=== PATIENT | female | born 1970 | race Caucasian/White ===

== ENCOUNTER 2016-12-29 02:00 | Inpatient (IN) | payer OTHER ==
[~2016-12-29] VITALS: Ht 162.6 cm; Wt 100.7 kg
[~2016-12-29 02:00] MED LIST: FUROSEMIDE20 M1 PO; METHIMAZOLE5 M1 PO
--- NOTE | 2016-12-29 13:49 | ULTRASOUND CBW REPORT ---
EXAMINATION: MM GUIDED NEEDLE LOCALIZATION BREAST, LEFT. US GUIDED NEEDLE LOCALIZATION BREAST, LEFT. US BREAST DIAGNOSTIC ULTRASOUND, LEFT MM BREAST DIGITAL DIAGNOSTIC MAMMOGRAM, LEFT. CLINICAL INFORMATION: Needle localization of biopsy-proven metastatic lymph node in the left axilla. COMPARISON: Ultrasound-guided biopsy and post procedure mammogram dated 04/17/2016. Breast MRI scan dated 09/08/2016. TECHNIQUE/FINDINGS: An ultrasound of the left axilla and axillary tail was performed with real-time assessment by the reading radiologist. No images were specifically taken. However, on real-time scanning, a few scattered axillary lymph nodes were visualized without discrete cortical thinning. The index lymph node with the biopsy clip could not be identified. The patient was therefore brought into the mammography suite and imaging of the left axilla/axillary tail was performed. However, despite multiple tries in different positions, the desired lymph node with associated biopsy clip could not be seen. Given nonvisualization of the index lymph node in the left axilla, a needle localization study could not be performed. IMPRESSION: Unsuccessful needle localization of the left breast with mammographic guidance or sonographic guidance. These findings were discussed with Dr. Marie. ASSESSMENT: ACR BI-RADS 6: Known breast cancer. RECOMMENDATIONS: Would recommend obtaining specimen radiographs of the excised lymph nodes to document that the index lymph node has also been resected. The patient was notified of the findings and recommendations at the time of the exam.
--- NOTE | 2016-12-29 14:03 | Operative Report ---
Operative/Inv Procedure Report Surgery Date: 12/29/16 Name of Procedure: Bilateral mastectomy, left axillary node biopsy, left sentinel node biopsy Pre-Operative Diagnosis: Left breast cancer, status post neoadjuvant chemotherapy Post-Operative Diagnosis: Same Estimated Blood Loss: less than 50ml Surgeon/Aerophysics Engineer: HA ARMSTRONG MD Anesthesia: general endotracheal tube Specimens: Right breast, left breast, sutures marked medial margin, left axillary lymph node Operative/Procedure Note Note: Patient status post treatment with neoadjuvant chemotherapy for locally advanced , node positive left breast cancer. She had evidence of an excellent radiologic response. She is brought to the operating room for bilateral mastectomies. Attempt was made at wire localization of an axillary lymph node however the clip was not able to be definitively visualized. Preoperative lymphoscintigraphy was performed. She is brought to the operating room on 12/29/2016 placed supine on the table, preoperative Ancef was given and bilateral breast reprepped and draped in sterile fashion using ChloraPrep. Blue, 3 mL diluted with 2 mL of saline was injected in the left retroareolar fashion. Right breast was approached first. Curvilinear incisions were made above and below the nipple areolar complex. Flaps are created superiorly to level clavicle, inferiorly to the superior border the rectus sheath, laterally to the axilla and medially to the sternum. From the pectoralis fashion using electrocautery. Hemostasis was achieved using electrocautery. The superior skin flap was thick and therefore additional tissue was taken to thin the superior flap. This was sent with the mastectomy specimen. The left breast was then approached. Skin flaps are created in a similar fashion and the nipple areola complex was excised with the specimen. Specimen was removed and marked for division margin map. Then approached. There was a single hot lymph node identified and this was excised. Intraoperative x-ray confirmed the presence of the clip in the specimen. Therefore both the sentinel lymph node and positive lymph node were removed and may in fact be the same lymph node. There were no other palpable lymph nodes in the axilla. This is was adequate. The remainder the procedure be dictated by Dr. Heard.
[2016-12-29] MEDS ORDERED: DIOVAN320 M1 PO (15:20)
[2016-12-29] MEDS ORDERED: LEVOTHYROXINE75 MCG PO (15:20)
[2016-12-29] MEDS ORDERED: ATORVASTATIN CA80 M1 PO (15:21)
--- NOTE | 2016-12-29 16:56 | MAMMOGRAPHY REPORT ---
EXAMINATION: MM NEEDLE LOCALIZATION SPECIMEN FROM THE BREAST, LEFT CLINICAL INDICATION: Excision of left axillary lymph node, biopsy-proven to represent a metastatic lymph node. COMPARISON: Ultrasound-guided biopsy dated 04/17/2016. TECHNIQUE: Single specimen radiograph was obtained. FINDINGS: The radiograph of the excised surgical specimen shows a 0.6 cm diameter nodular density with adjacent wing shaped biopsy clip. IMPRESSION: Satisfactory excision of the index lymph node, previously biopsied and found to represent a metastatic lymph node. These findings were communicated to the surgeon in the OR at the time of specimen radiography.
--- NOTE | 2016-12-29 17:24 | Admission Core Measures ---
Admission Lab Results I reviewed the following labs: Laboratory Tests 12/29 0838 Urines Urine Test NEGATIVE Admission Meds I reviewed the following Meds: Current Medications Sig/Marry Start time Last Medication Dose Stop Time Status Admin Cefazolin Sodium 2,000 MG ONCE 12/29 0000 NR (Kefzol-Ancef Inj) 12/29 2359 Acute Coronary Syndrome Inclusion Criteria ACS Diagnosis No Inpatient Core Measures LDL Reminder: If No, please order W/I first 24hr of stay Congestive Heart Failure Inclusion Criteria CHF Diagnosis No Cerebrovascular accident Inclusion Criteria CVA/TIA Diagnosis No Inpatient Core Measures Bedside Swallow Eval Reminder: If BSE failed, place ST order Antithrombotic Reminder: Order Antithrombotic Medication by end of day 2 Antithrombotic Reminder: Document Reason Antithrombotic Not ordered by end of day 2 AFIB/Flutter Reminder: If Present, add to problem list AFIB/Flutter Reminder: Order Anticoag Medication for pts with AFIB/Flutter Atherosclerosis Reminder: If Present, add to problem list LDL Reminder: If No, please order W/I first 24hr of stay PT Order Reminder: If No, please order Venous thromboembolism Inpatient Core Measures VTE Risk Factors: Age > 40, Cancer/chemo/oth therapy, Surgery No [facility] VTE prophylaxis d/t No contraindications No VTE Pharm Prophylaxis d/t No contraindications Inclusion Criteria - Per Current guidelines, there needs to be overlap - treatment for the first 5 days of Warfarin therapy. - Parenteral Anticoagulation (IV or SC) needs to be - given along with Warfarin therapy. VTE Diagnosis No VTE Type NONE VTE Confirmed by (Test) NONE Problem List As ranked by this Provider includes Assessment & Plan 1. S/P mastectomy, bilateral 2. Breast cancer HOME MEDS Home Med List Atorvastatin Calcium 80 MG TABLET 1 TAB PO DAILY CHOL (Reported) Furosemide 20 MG TABLET 1 TAB PO DAILY EDEMA (Reported) Levothyroxine Sodium 75 MCG TABLET 1 TAB PO DAILY THYROID (Reported) Methimazole 5 MG TABLET 1 TAB PO DAILY ? (Reported) Valsartan (Diovan) 320 MG TABLET 1 TAB PO DAILY BP (Reported)
[2016-12-29 18:15] VITALS: BP 148/80
--- NOTE | 2016-12-29 18:48 | Operative Report ---
Operative/Inv Procedure Report Surgery Date: 12/29/16 Name of Procedure: Bilateral breast reconstruction with tissue expanders with serratus fascia slings Pre-Operative Diagnosis: Left breast cancer Post-Operative Diagnosis: Acquired absence of breasts Estimated Blood Loss: less than 50ml Surgeon/Waiter/Waitress Cabin Class: Julián Heard MD Anesthesia: general endotracheal tube Monitors: NA IV Fluids: 3.2 L Crystalloids Implants: [place] CPX 4 Tissue Expanders 450 cc Left: [id number], [id number], [id number] Right: [id number], [id number], SN: [id number] Urine Output: NA Drains: 4 ROSEMARIE drains Specimens: None Microbiology: NA Tourniquet: NA Complications: None Condition: Stable Operative Indication: 46 yo female s/p neoadjuvant chemotherapy for locally advanced, node positive left breast cancer for bilateral mastectomies, breast reconstruction with tissue expanders. The procedure, risks, benefits, alternatives were discussed with patient and [id number]. The risks discussed but not limited included bleeding, infection, hematoma, seroma, pain, wound dehiscence, capsular contracture, asymmetry, and scarring. Knowing these risks the patient agreed to the procedure. Operative/Procedure Note Note: The patient was taken to the operating room and placed in supine position. SCD's placed on the lower extremity. Antibiotics given. General anesthesia administered. Breasts with anterior chest wall prepped and draped in sterile fashion. Patient underwent bilateral mastectomies performed by Dr. Marie. Separate dictation done. Upon completion of the right mastectomy, the breast pocket was inspected. Skin flaps examined and were noted to be with uniform thickness and with good hemostasis. Pectoralis major muscle was then elevated in the superior, medial, and inferior directions to the preoperative markings. This was performed using blunt and cautery dissection technique assisted with a lighted retractor. These pectoralis major muscle origins were completely left intact. Attention then placed towards the lateral chest wall with serratus anterior facia elevated as a lateral sling. Pocket was irrigated with diluted betadine solution followed by triple antibiotics (ancef, gentamicin, bacitracin). Attention was then turned to the left breast pocket. Skin flaps examined and were noted to be with uniform thickness and with good hemostasis. Pectoralis major muscle was then elevated in the superior, medial, and inferior directions to the preoperative markings. This was performed using blunt and cautery dissection technique assisted with a lighted retractor. These pectoralis major muscle origins were completely left intact. Attention then placed towards the lateral chest wall with serratus anterior facia elevated as a lateral sling. Pocket was irrigated with diluted betadine solution followed by triple antibiotics (ancef, gentamicin, bacitracin). Breast specimens weighed left: 822 grams, right: 844 grams. [place] CPX 4 450 cc tissue expanders were selected. Anterior chest wall prepped again. Sterile gloves changed. Left tissue manager lvn [id number], LOT:[id number], SN: [id number] was placed within the subpectoral pocket. The lateral edge of the pectoralis muscle was reapproximated to the serratus fascia sling with a 3-0 Vicryl . Two ROSEMARIE drains was placed through a separate stab incision at the anterior lateral inframammary fold and anchored to the skin using 3-0 nylon suture. Closure of the dermal layer then subsequently performed using interrupted 3-0 Vicryl suture. Skin closed using running 4-0 monocryl subcuticular suture. Attention then placed on the right breast pocket. Right tissue manager lvn REF:[id number], LOT: [id number], SN:[id number] was placed within the subpectoral pocket. The lateral edge of the pectoralis muscle was reapproximated to the serratus fascia sling with a 3-0 Vicryl . Two ROSEMAREI drains was placed through a separate stab incision at the anterior lateral inframammary fold and anchored to the skin using 3-0 nylon suture. Closure of the dermal layer then subsequently performed using interrupted 3-0 Vicryl suture. Skin closed using running 4-0 monocryl subcuticular suture. 100 cc of normal saline was injected into each tissue manager lvn. Mastectomy flaps appeared to be without congestion. Dermabond, telfa, tegaderm applied to surgical sites. Biopatch placed around all drain sites with Tegaderm. Counts were correct. The patient tolerated the procedure, was extubated, and returned to the recovery room in stable condition. Findings: [place] CPX 4 Tissue Expanders 450 cc Left: [id number], LOT:[id number], [id number] Right: [id number], LOT:[id number], SN: [id number] Discharge Disposition: PACU Additional Comments: NA
[2016-12-29 20:20] VITALS: BP 122/84
--- NOTE | 2016-12-29 20:45 | PN- General Surgery ---
Subjective Subjective: POST OP CHECK S/P BL mastectomy/recon c/o chest wall pain at incisions, no sob/cp, no n/v, lynne sips of clears, +void postop Objective Vital Signs and I&Os Vital Signs Date Time Temp Pulse Resp B/P B/P Pulse O2 O2 Flow FiO2 Mean Ox Delivery Rate 12/29 2008 Nasal 2.0L Cannula SBP 130s, HR 80 +void postop JPx4: all <25cc, serosang Physical Exam: GEN: NAD CARD: S1S2 RRR PULM: no audible wheeze ABD: soft nt EXT: calves soft nt bl INCISIONS: bl breast incisions with c/d/i drsgs, no eccymosis, no erythema, no drainage, JPx4 minimal serosang in bulb Assessment/Plan Assessment/Plan POD0 sp bl mastectomy, bl recon w tissue expanders, postop pain, otherwise stable. PLAN: PRN narc pain meds ATC toradol, tylenol, valium Ancef postop- ?need abx for duration of JPs aat to reg diet DVT ppx home meds Core Measures/Miscellaneous Venous Thromboembolism VTE Risk Factors: Age > 40, Cancer/chemo/oth therapy, Surgery VTE Contraindications: No Contraindications VTE Diagnosis: No VTE Type: NONE VTE Confirmed by (Test): NONE Beta Gretchen Is Beta Gretchen a Home Med? No Antibiotics Is Patient on Antibiotics? Yes
[2016-12-30] VITALS (7 sets, daily range): BP systolic 104–150; BP diastolic 62–100
--- NOTE | 2016-12-30 07:48 | PN- General Surgery ---
Subjective Subjective: complains of incisional pain Objective Vital Signs and I&Os Vital Signs Date Time Temp Pulse Resp B/P B/P Pulse O2 O2 Flow FiO2 Mean Ox Delivery Rate 12/30 0600 Nasal 2.0L Cannula 12/30 0459 98.4 77 18 104/74 97 Nasal Cannula 12/30 0400 97 Nasal 2.0L Cannula 12/30 0200 Nasal 2.0L Cannula 12/30 0117 98.0 76 16 110/70 98 Nasal Cannula 12/30 0000 Nasal 2.0L Cannula 12/29 2200 97 Nasal 2.0L Cannula 12/30 2019 97.6 80 16 122/84 98 Nasal 2.0L Cannula 12/29 2008 Nasal 2.0L Cannula 12/29 182 97 Nasal 2.0L Cannula 12/29 182 97 Nasal 2.0L Cannula 12/29 181 97.7 96 16 148/80 97 Nasal 2.0L Cannula Intake & Output 12/30 0800 12/30 0000 12/29 1600 12/29 0800 12/29 0000 12/28 1600 Intake Total 950 Output Total 1140 Balance -190 Intake, IV 250 Intake, Oral 700 Number 0 Bowel Movements Output, 140 Drainage Output, Urine 1000 Patient 222 lb Weight Weight Reported by Patient Measurement Method Physical Exam: No hematoma, dressing DCDI Assessment/Plan Assessment/Plan Patient complains of incisional pain. Will add long acting narcotic and add valium for muscle spasm. Out of bed. Core Measures/Miscellaneous Venous Thromboembolism VTE Risk Factors: Age > 40, Cancer/chemo/oth therapy, Surgery VTE Contraindications: No Contraindications VTE Diagnosis: No VTE Type: NONE VTE Confirmed by (Test): NONE Beta Gretchen Is Beta Gretchen a Home Med? No Antibiotics Is Patient on Antibiotics? Yes
[2016-12-30 08:53] LABS: ABSOLUTE BASOPHIL COUNT 0 /CUMM (0.0-0.2); ABSOLUTE EOSINOPHIL COUNT 0 /CUMM (0.0-0.7); ABSOLUTE GRANULOCYTE CT 4.1 /CUMM (1.4-6.5); ABSOLUTE LYMPH COUNT 2.1 /CUMM (1.2-3.4); ABSOLUTE MONOCYTE COUNT 0.5 /CUMM (0.10-0.60); BASOPHIL % 0.3 % (0.0-2.0); EOSINOPHIL % 0.2 % (0-5); HEMATOCRIT 26.6 % (37-47); MEAN CORPUSCULAR HGB 31.9 PG (27.0-31.0); MEAN CORPUSCULAR HGB CONC 32.8 G/DL (33.0-37.0); MEAN CORPUSCULAR VOLUME 97.2 FL (81.0-99.0); MEAN PLATELET VOLUME 8.6 FL (7.4-10.4); PLATELET COUNT 145 /CUMM (130-400); RBC DISTRIBUTION WIDTH 17.4 % (11.5-14.5); RED BLOOD CELL CT 2.73 /CUMM (4.20-5.40); WHITE BLOOD CELL COUNT 6.7 /CUMM (4.8-10.8)
--- NOTE | 2016-12-30 11:49 | PN- Plastic Surgery ---
Subjective Subjective: Patient c/o mild pain at the surgical site Review of Systems Musculoskeletal: Reports: muscle pain. Objective Vital Signs and I&Os Vital Signs Date Time Temp Pulse Resp B/P B/P Pulse O2 O2 Flow FiO2 Mean Ox Delivery Rate 12/30 1015 93 120/64 12/30 1000 95 Nasal 2.0L Cannula 12/30 1000 98.7 93 18 120/64 95 Nasal 2.0L Cannula 12/30 0800 Nasal 2.0L Cannula 12/30 0800 94 Nasal 2.0L Cannula 12/30 0800 98.2 75 20 150/100 98 Nasal 2.0L Cannula 12/30 0600 Nasal 2.0L Cannula 12/30 0459 98.4 77 18 104/74 97 Nasal Cannula 12/30 0400 97 Nasal 2.0L Cannula 12/30 0200 Nasal 2.0L Cannula 12/30 0117 98.0 76 16 110/70 98 Nasal Cannula 12/30 0000 Nasal 2.0L Cannula 12/29 2200 97 Nasal 2.0L Cannula 12/30 2019 97.6 80 16 122/84 98 Nasal 2.0L Cannula 12/29 2008 Nasal 2.0L Cannula 12/29 182 97 Nasal 2.0L Cannula 12/29 1820 97 Nasal 2.0L Cannula 12/29 181 97.7 96 16 148/80 97 Nasal 2.0L Cannula Intake & Output 12/30 1600 12/30 0800 12/30 0000 12/29 1600 12/29 0800 12/29 0000 Intake Total 875 950 Output Total 155 1140 Balance 720 -190 Intake, IV 775 250 Intake, Oral 100 700 Number 0 Bowel Movements Output, 155 140 Drainage Output, Urine 1000 Patient 222 lb Weight Weight Reported by Patient Measurement Method Physical Exam Breasts: Anterior chest wall=dressing clean and dry, mild incisional tenderness Assessment/Plan Assessment/Plan 46 F s/p bilateral mastectomies, breast reconstruction with tissue expanders -Regular diet -OOB>ambulate -Surgical bra (XL) when ambulating -PO antibioitcs, Flexeril PRN muscle spasms -No heavy lifting -Bath, no shower -Drain management -F/U 1 week after dischargfe Core Measures/Miscellaneous Venous Thromboembolism VTE Risk Factors: Age > 40, Cancer/chemo/oth therapy, Surgery VTE Contraindications: No Contraindications VTE Diagnosis: No VTE Type: NONE VTE Confirmed by (Test): NONE Beta Gretchen Is Beta Gretchen a Home Med? No Antibiotics Is Patient on Antibiotics? Yes Attending MD Review Statement Attending Statement Attending MD Statement: discuss w/resident/PA/COLLETER, discussed w/nursing
--- NOTE | 2016-12-30 22:54 | Patient Discharge Instructions ---
Discharge Instructions General Discharge Information You were seen/treated for: left breast cancer You had these procedures: bilateral breast mastectomy bilateral breast reconstruction with tissue expanders and serratus fascia slings Watch for these problems: temp>101, increased wound drainage, increased drain output, change in color of drain output Other wound care: keep wounds clean and dry with daily dry sterile dressing changes Special Instructions: -OOB>ambulate -Surgical bra (XL) when ambulating -by mouth antibioitcs, Flexeril PRN muscle spasms -No heavy lifting -Drain management Diet Continue normal diet: Yes Activity Activity Limited to: Weight bear as tolerated Other activity limits: no heavy lifting, no strenuous activity Acute Coronary Syndrome Inclusion Criteria At DC or during hospital stay patient has or had the following: ACS DIAGNOSIS No Discharge Core Measures Meds if any: Prescribed or Continued at Discharge Meds if any: NOT Prescribed or Continued at Discharge Congestive Heart Failure Inclusion Criteria At DC or during hospital stay patient has or had the following: CHF DIAGNOSIS No Discharge Core Measures Meds if any: Prescribed or Continued at Discharge Meds if any: NOT Prescribed or Continued at Discharge Cerebrovascular accident Inclusion Criteria At DC or during hospital stay patient has or had the following: CVA/TIA Diagnosis No Discharge Core Measures Meds if any: Prescribed or Continued at Discharge Meds if any: NOT Prescribed or Continued at Discharge Venous thromboembolism Inclusion Criteria VTE Diagnosis No VTE Type NONE VTE Confirmed by (Test) NONE Discharge Core Measures - Per Current guidelines, there needs to be overlap - treatment for the first 5 days of Warfarin therapy. - If discharged on Warfarin prior to 5 days of - overlap therapy, the patient will need to be - assessed for post discharge needs including - *Post discharge parental anticoagulation - *Warfarin and/or parental anticoagulation education - *Follow up date to check INR post discharge At least 5 days overlap therapy as Inpatient No Meds if any: Prescribed or Continued at Discharge Note: Overlap Therapy is Warfarin and Anticoagulant Meds if any: NOT Prescribed or Continued at Discharge
[2016-12-30] MEDS ORDERED: KEFLEX500 M1 PO (23:00)
[2016-12-30] MEDS ORDERED: VALIUM5 M2 PO (23:00)
[2016-12-30] MEDS ORDERED: MS CONTIN100 MG PO (23:00)
[2016-12-30] MEDS ORDERED: ROXICODONE15 M1 PO (23:00)
[2016-12-31 00:05] VITALS: BP 105/49
[2016-12-31 04:00] VITALS: BP 118/70
--- NOTE | 2016-12-31 07:52 | PN- General Surgery ---
Subjective Subjective: The patient was seen this morning postoperatively day #2. She still complains of pain predominantly on the right side however she reports the current pain regiment is much better than the day prior. She has no complaints at the current time and denies any true chest pain or difficulty breathing. Objective Vital Signs and I&Os Vital Signs Date Time Temp Pulse Resp B/P B/P Pulse O2 O2 Flow FiO2 Mean Ox Delivery Rate 12/31 0600 98 Nasal 2.0L Cannula 12/31 0400 99.0 84 16 118/70 97 Nasal 2.0L Cannula 12/31 0400 97 Nasal 2.0L Cannula 12/31 0005 99.0 87 18 105/49 94 Room Air 12/31 0000 94 Room Air 12/30 2200 94 Room Air 12/30 2000 98.2 81 18 112/62 95 Room Air 12/30 2000 95 Room Air 12/30 1800 95 Room Air 12/30 1624 98.3 81 20 132/74 95 12/30 1600 95 Room Air 12/30 1400 94 Room Air 12/30 1200 98.4 88 18 130/68 95 Room Air 12/30 1200 95 Room Air 12/30 1015 93 120/64 / 1000 95 Nasal 2.0L Cannula 12/30 1000 98.7 93 18 120/64 95 Nasal 2.0L Cannula 12/30 0800 Nasal 2.0L Cannula 12/30 0800 94 Nasal 2.0L Cannula 12/30 0800 98.2 75 20 150/100 98 Nasal 2.0L Cannula Intake & Output 12/31 0800 /14 0000 12/30 1600 /13 0800 12/30 0000 12/29 1600 Intake Total 1320 1210 1801 875 950 Output Total 225 180 736 227 3882 Balance 1095 1030 1586 720 -190 Intake, IV 600 650 721 775 250 Intake, Oral 074 358 9649 100 700 Number 0 0 Bowel Movements Output, 225 180 215 155 140 Drainage Output, Urine 1000 Patient 222 lb Weight Weight Reported by Patient Measurement Method Physical Exam: Gen.: Alert and in obvious distress Skin: Warm and dry Chest: With surgical bra and dressings are clean, dry, and intact. No signs of significant hematoma and overlying skin tissue appears viable and noncongested. Bilateral JPs are in place and holding suction with serosanguineous drainage in the bulb's Cardiac: S1-S2 regular Pulmonary: Bilateral breath sounds are equal and decreased at bases Extremities: Bilateral lower extremities are warm without calf tenderness. Assessment/Plan Assessment/Plan Assessment: 46-year-old female status post bilateral mastectomy with immediate reconstructive surgery postoperative day #2. The patient is progressing as expected and her pain is more adequately controlled the day prior. Plan: Hep-Lock IV fluids Continue current pain regiment Out of bed Continue antibiotics and change to by mouth antibiotics upon discharge Keep JPs to self suction Strict I's and O's Incentive spirometry and wean O2 GI and DVT prophylaxis Questionable discharged later today at the discretion of the surgical attending Core Measures/Miscellaneous Venous Thromboembolism VTE Risk Factors: Age > 40, Cancer/chemo/oth therapy, Surgery VTE Contraindications: No Contraindications VTE Diagnosis: No VTE Type: NONE VTE Confirmed by (Test): NONE Beta Gretchen Is Beta Gretchen a Home Med? No Antibiotics Is Patient on Antibiotics? Yes
[2016-12-31 08:19] VITALS: BP 117/71
[2016-12-31 08:46] VITALS: BP 130/80
--- NOTE | 2016-12-31 08:47 | Surgical Discharge Summary ---
Visit Information Visit Dates Admission Date: 12/29/16 Discharge Date: 12/31/16 History of Present Illness Chief Complaint: left breast cancer Medical History Blood Transfusion Hx: No Neurological: NONE EENT: NONE Cardiovascular: NONE Respiratory: NONE Gastrointestinal: NONE Hepatic: NONE Renal: NONE Musculoskeletal: NONE Psychiatric: NONE Endocrine: NONE Blood Disorders: NONE Cancer(s): BREAST CANCER [employer]/Reproductive: NONE History of MRSA: No History of VRE: No History of CDIFF: No Isolation History: Standard Surgical History Pertinent Surgical History: non-contributory, BILATERAL MASTECTOMY/LIZANDRO NSTRUCTION Psychosocial History Where Do You Live? Home Who Do You Live With? Family Services at Home: None What is Your Primary Language? [place] Review of Systems: neg Hospital Course Course Attending Physician: HA ARMSTRONG MD Primary Care Physician: JUDITH VÁSQUEZ MD Hospital Course: Patient was admitted for bilateral mastectomy on 12/29/16. She did well post operatively and was monitored for pain control. On the morning of post oeperative day 2, her pain was well controlled, she was tolerating a regular diet, she had no evidence of bleeding or infection and was discharged home. Allergies: Coded Allergies: No Known Allergies (12/27/16) Disposition Summary Disposition Principal Diagnosis: Left breast cancer Additional Diagnosis: none Discharge Disposition: home or self care Discharge Instructions General Discharge Information Code Status: Full Code Patient's Diet: ad aiyana Patient's Activity: do not raise arms above 90 degrees Follow-Up Instructions/Appts: follow up with Dr. Heard and Dr. Armstrong in one week. Medications at Discharge Discharge Medications: Continue taking these medications: Methimazole (Methimazole) 5 MG TABLET 1 Tablet ORAL DAILY Furosemide (Furosemide) 20 MG TABLET 1 Tablet ORAL DAILY Valsartan (Diovan) 320 MG TABLET 1 Tablet ORAL DAILY Levothyroxine Sodium (Levothyroxine Sodium) 75 MCG TABLET 1 Tablet ORAL DAILY Atorvastatin Calcium (Atorvastatin Calcium) 80 MG TABLET 1 Tablet ORAL DAILY Start taking the following new medications: Morphine Sulfate (Ms Contin) 100 MG TABLET.ER 1 Tablet ORAL TWICE DAILY Qty = 20 No Refills Oxycodone HCl (Roxicodone) 15 MG TABLET 1 Tablet ORAL EVERY 4-6 HOURS NEEDED as needed for PAIN SCALE 4-6 ( MODERATE) Qty = 30 No Refills Diazepam (Valium) 5 MG TABLET 1 Tablet ORAL EVERY 8 HOURS NEEDED as needed for SPASMS Qty = 30 No Refills Cephalexin (Keflex) 500 MG CAPSULE 1 Capsule ORAL THREE TIMES DAILY Qty = 21 No Refills
== END 2016-12-31 11:55 | DRG 580 ==
LOC: SDA 02:00 → ENRESERV 16:19 → 1NO 18:14 → ENPENDDIS 12-31 09:00 → 1NO 12-31 11:55
PROVIDERS: Physician Assistant; ADMIT Surgery
PROC: 07B60ZX Excision of Left Axillary Lymphatic, Open Approach, Diagnostic (ICD-10-PCS; principal; 2016-12-29)
PROC: 0HRV0JZ Replacement of Bilateral Breast with Synthetic Substitute, Open Approach (ICD-10-PCS; principal; 2016-12-29)
DX: C50.312 Malignant neoplasm of lower-inner quadrant of left female breast (principal); C77.3 Secondary and unspecified malignant neoplasm of axilla and upper limb lymph nodes; E66.9 Obesity, unspecified; Z68.38 Body mass index [BMI] 38.0-38.9, adult; F17.210 Nicotine dependence, cigarettes, uncomplicated
CPT/HCPCS: 1NP; 76642-LT; 81025; 82436; 88307; A9520; C9399; G0206-LT; J0131; J0690; J1644; J1885; J2405; J3490; J7042